=== PATIENT | female | born 1935 | race Caucasian/White ===

== ENCOUNTER 2018-06-19 12:54 | Outpatient (RCR) | payer MEDICARE, BC ==
[~2018-06-19 12:54] MED LIST: THYR120T10 PO; THYR60TA25 PO; [UNRECOGNIZED DRUG - CODE] PO; [UNRECOGNIZED DRUG - CODE] PO
--- NOTE | 2018-06-20 11:04 | PT INITIAL EVALUATION ---
MEDICAL DIAGNOSIS: Benign Paroxysmal Positional Vertigo TREATMENT DIAGNOSIS: Same DATE OF ONSET: 01/20/18 SUBJECTIVE: Nory Siegel presents to physical therapy with complaints of vertigo that started approximately sometime in December or January 2018. She reports that she experiences a spinning sensation when looking up, turning over in bed especially when turning to her R side, and getting up especially when she does it quickly. She reports that she spinning sensation has stayed about the same since the occurrence. She denies being nauseous. REHAB PROBLEM LIST: Impaired Transfers Decreased Balance Decreased Function Decreased ADL's PREVIOUS MEDICAL HISTORY: See EMR OCCUPATION: Retired OBJECTIVE: Posture: She demonstrates B rounded shoulders, increased thoracic kyphosis, and decreased lumbar lordosis. Special Tests: (-) OCULOMOTOR/VESTIBULAR TESTING: Spontaneous Nystagmus: Absent VOR Head Thrust (horizontal canal function): R: Negative, L: Negative Gaze- Evoked Nystagmus with fixation present:Absent VOR Head Thrust (posterior canal function): R: Positive, L: Positive Posterior Horizontal Head-Shaking Nystagmus ( + ) Gaze-Evoked Nystagmus with fixation suppressed: absent Smooth Pursuit Saccades VOR Cancellation: Normal POSITIONING TEST: Left Hallpike + Right Hallpike + Roll Test + R and + L ASSESSMENT: Nory will benefit from skilled physical therapy addressing the listed impairments to improve function and QOL. Short Term Goals 1 week: Pt will be independent in her home exercise program. 3 weeks: Pt will be able to move her head into cervical extension, cervical rotation to the R and L, and turn head in bed with 0/10 dizziness to improve function and QOL. 3 weeks: Pt will be able to perform supine to sit to standing transfers and ambulate with 0/10 dizziness to improve function and QOL. Patient's Goals resolve this vertigo PLAN: Patient to be seen for Manual Therapy/STM/MET Strengthening/condition Neuromuscular Re-ed Posture/Body mechanics Gait Trg/Balance Trg 2-3x/week for 3 weeks If you have any questions, comments, or concerns about this report or plan, please contact me at . Thank you, Jeanmarie Costello, PT, DPT TESSIE
== END 2018-06-19 18:00 | disposition home or self-care (01) ==
LOC: PT 12:54
PROVIDERS: ATTEND Family Medicine
DX: H81.11 Benign paroxysmal vertigo, right ear (principal)
CPT/HCPCS: 97161

== ENCOUNTER → 2018-07-10 | Outpatient (CLI) | payer MEDICARE, BC ==
[~2018-07-10] MED LIST changes: +RANI-318 PO; +[UNRECOGNIZED DRUG - OTHER]; +[UNRECOGNIZED DRUG - OTHER] PO; +[UNRECOGNIZED DRUG - OTHER] PO
--- NOTE | 2018-07-10 18:35 | EKG ---
FACILITY: [facility] PATIENT NAME: TANISHA GONZALEZ : [id number] MR: [id number] V: [id number] EXAM DATE: ORDERING PHYSICIAN: MARIA LUISA ALBERTO TECHNOLOGIST: JOHN Test Reason : A FIB Blood Pressure : / mmHG Vent. Rate : 094 BPM Atrial Rate : 094 BPM P-R Int : 154 ms QRS Dur : 088 ms QT Int : 288 ms P-R-T Axes : 007 -18 -11 degrees QTc Int : 360 ms Sinus rhythm with premature supraventricular complexes Nonspecific T wave abnormality Abnormal ECG No previous ECGs available Referred By: MARIA LUISA ALBERTO Confirmed By:
== END ==
LOC: RESP 15:02
PROVIDERS: ATTEND Family Medicine
DX: Z02.9 Encounter for administrative examinations, unspecified (principal)

== ENCOUNTER → 2018-08-30 | Outpatient (CLI) | payer MEDICARE, BC | LOC: LAB 07:30 | PROVIDERS: ATTEND Family Medicine | DX: E03.9 Hypothyroidism, unspecified (principal); N17.9 Acute kidney failure, unspecified | CPT/HCPCS: 36415; 82043; 82310; 82374; 82435; 82565; 82947; 84132; 84295; 84443; 84520 ==

== ENCOUNTER → 2018-09-04 | Outpatient (CLI) | payer MEDICARE, BC ==
--- NOTE | 2018-09-04 15:40 | RADIOLOGY IMAGING REPORT ---
FACILITY: [facility] [place] PATIENT NAME: Nory Siegel : 1935 MR: [id number] V: [id number] EXAM DATE: ORDERING PHYSICIAN: MARIA LUISA ALBERTO TECHNOLOGIST: Location: [facility] [place] Patient: Nory Siegel : 1935 Visit/Account:[id number] Date of Sevice: 09/04/2018 KIDNEYS EXAMINATION: Renal ultrasound. History: Right kidney pain COMPARISON STUDIES: Abdomen ultrasound October 01, 2015 FINDINGS: Kidneys: Right kidney- 8.3 x 4.5 x 4.9 cm Left kidney- 11.4 x 5.4 x 4.9 cm Uniform and symmetric blood flow in each kidney by Doppler ultrasound. Hydronephrosis: none Resistive index on the right 0.55 and on the left 0.67 The mid pole right kidney there is a 2.3 x 2.1 x 3.2 cm simple appearing cyst is slightly increased i n size when compared the prior study.. Previously noted cortical thinning of the right kidney is les s evident on the current study Bladder: Urinary bladder prevoid volume was 83.4 mL. Post for residual 12.5 mL. Bilateral ureteral jets are identified. Incidentally noted are three cystic structures in the left adnexa which may represent ovarian cysts. The largest measures 1.7 cm in diameter Abdominal aorta and IVC: Aorta and IVC are patent by Doppler ultrasound. IMPRESSION: 2.3 x 2.1 x 3.2 cm simple appearing cyst in the midpole the right kidney appears slightly increased i n size when compared the prior study. 3. Cystic structures the left adnexa may represent ovarian cy sts. The largest measures 1.7 cm in diameter Report Dictated By: Veronica De La Cruz MD at 09/04/2018 3:31 PM Report E-Signed By: Veronica De La Cruz MD at 09/04/2018 3:35 PM WSN:[email or web address]
== END ==
LOC: US 02:32
PROVIDERS: ATTEND Family Medicine
DX: N28.1 Cyst of kidney, acquired (principal)
CPT/HCPCS: 76705